=== PATIENT | female | born 1955 | race Caucasian/White ===

== ENCOUNTER 2017-01-18 08:47 | Emergency (ER) | payer BC ==
[2017-01-18 08:56] VITALS: BP 145/80
--- NOTE | 2017-01-18 09:17 | UC ---
Respiratory Complaint HPI - HPI Summary HPI Summary: 61 yo female with cough x 1 week cough is brought on by deep breath or talking no fever or chills fatigue anorexia no n/v/d no chest pain states her normal HR is in the nineties (on beta blosker) - History of Current Complaint Chief Complaint: UCRespiratory Stated Complaint: COUGH,TIGHT CHEST,NO APPETITE Time Seen by Provider: 01/18/17 09:00 Hx Obtained From: Patient Onset/Duration: Gradual Onset, Lasting Days - 7 Timing: Constant Severity Initially: Mild Severity Currently: Mild Pain Intensity: 0 Pain Scale Used: 0-10 Numeric Character: Cough: Nonproductive Aggravating Factors: Deep Breaths Alleviating Factors: Nothing Associated Signs And Symptoms: Positive: Negative - Allergies/Home Medications Allergies/Adverse Reactions: Allergies Allergy/AdvReac Type Severity Reaction Status Date / Time Codeine Allergy Vomiting Verified 01/18/17 08:56 Erythromycin AdvReac GI Upset Verified 01/18/17 08:56 Moxifloxacin [From Avelox] AdvReac GI Upset Verified 01/18/17 08:56 Sulfa Antibiotics AdvReac GI Upset Verified 01/18/17 08:56 Tetracycline AdvReac GI Upset Verified 01/18/17 08:56 Home Medications: Home Medications Atenolol TAB* [Tenormin TAB* 50 MG] 50 mg PO DAILY 01/18/17 [History Confirmed 01/18/17] Atorvastatin* [Lipitor*] 40 mg PO DAILY 01/18/17 [History Confirmed 01/18/17] Metoprolol Tartrate TAB* [Lopressor TAB*] 12.5 mg PO DAILY 01/18/17 [History Confirmed 01/18/17] PMH/Surg Hx/FS Hx/Imm Hx Cardiovascular History Of: Reports: Cardiac Disorders - OK, Hypertension Respiratory History Of: Reports: COPD, Bronchitis - Surgical History Surgical History: Yes Surgery Procedure, Year, and Place: STENT PLACEMENT - Family History Known Family History: Positive: Cardiac Disease, Hypertension, Other - dyslipedmia, no hx PE - Social History Alcohol Use: None Substance Use Type: None Smoking Status (MU): Current Every Day Smoker Type: Cigarettes Amount Used/How Often: 1 PPD Length of Time of Smoking/Using Tobacco: 30 YRS Have You Smoked in the Last Year: Yes Review of Systems Constitutional: Fatigue Skin: Negative Eyes: Negative ENT: Negative Respiratory: Negative, Cough Cardiovascular: Negative Gastrointestinal: Negative Genitourinary: Negative Motor: Negative Neurovascular: Negative Musculoskeletal: Negative Neurological: Negative Psychological: Negative All Other Systems Reviewed And Are Negative: Yes Physical Exam Triage Information Reviewed: Yes Appearance: Well-Appearing, No Pain Distress, Well-Nourished Vital Signs: Initial Vital Signs Temp 98.1 F 01/18/17 08:51 Pulse 88 01/18/17 08:51 Resp 15 01/18/17 08:51 BP 145/80 01/18/17 08:51 Pulse Ox 100 01/18/17 08:51 Vital Signs Reviewed: Yes Eyes: Positive: Conjunctiva Clear ENT: Positive: Hearing grossly normal. Negative: Nasal congestion, Nasal drainage, Trismus, Muffled/hoarse voice Neck: Positive: Supple, Nontender, No Lymphadenopathy Respiratory: Positive: Lungs clear, Normal breath sounds, No respiratory distress, No accessory muscle use, Wheezing - iwth forced expiration only Cardiovascular: Positive: RRR, No Murmur Musculoskeletal: Positive: ROM Intact, No Edema Neurological Exam: Normal Neurological: Positive: Alert Psychological Exam: Normal Skin Exam: Normal UC Diagnostic Evaluation - Laboratory O2 Sat by Pulse Oximetry: 100 - normal/not hypoxic - Radiology Xray Interpretation: No Acute Changes - stigmata of COPD Radiology Interpretation Completed By: Radiologist - EKG Cardiac Rate: NL, Tachycardia - rate 100 Cardiac Rhythm: Sinus: Normal Ectopy: None ST Segment: Normal Respiratory Course/Dx - Course Course Of Treatment: advised pt of XR suggestive of COPD. she will f/u with her MD - Differential Dx/Diagnosis Provider Diagnoses: acute bronchitis Discharge - Discharge Plan Condition: Stable Disposition: HOME Prescriptions: Amoxicillin (*) [Amoxicillin 875 MG (*)] 875 mg PO BID #20 tab Patient Education Materials: Acute Bronchitis (ED) Referrals: Patrica Saunders MD [Primary Care Provider] - If Needed Additional Instructions: recheck for new or worsening symptoms you can take mucinex or robitussin (plain) recheck in 3-4 days if not better
--- NOTE | 2017-01-18 10:00 | RAD ---
INDICATION: Cough, chest tightness. History of COPD and coronary artery disease with previous myocardial infarction. COMPARISON: None. TECHNIQUE: Dual energy PA and routine lateral views of the chest were obtained. REPORT: Elevated lung volumes with partial flattening of the hemidiaphragms. Mild prominence of the interstitial markings. No alveolar consolidation, focal pulmonary lesion, pleural effusion, pneumothorax. The heart, pulmonary vasculature, and mediastinal contours are unremarkable. Probable coronary stent visualized at the LEFT heart margin. IMPRESSION: Stigmata of chronic obstructive pulmonary disease. No acute cardiopulmonary process evident.
== END 2017-01-18 10:21 | disposition home or self-care (01) ==
LOC: UCCORT 08:47
DX: J44.0 Chronic obstructive pulmonary disease with (acute) lower respiratory infection (principal); J20.9 Acute bronchitis, unspecified; I25.2 Old myocardial infarction; I10 Essential (primary) hypertension; R53.83 Other fatigue; F17.210 Nicotine dependence, cigarettes, uncomplicated; Z88.5 Allergy status to narcotic agent; Z88.2 Allergy status to sulfonamides; Z88.8 Allergy status to other drugs, medicaments and biological substances
CPT/HCPCS: 71020; 93005; 99212; G0463

== ENCOUNTER 2018-06-12 16:09 | Emergency (ER) | payer BC ==
--- OUTSIDE RECORDS SUMMARY | 2018-06-12 16:19 | XMS REPORT ---
:1955 External Reference #:[id number] Author Organization [facility] Address [address] [place] [address] Phone [phone] Care Team Providers Name Role Phone Patrica Saunders MD Care Team Information Executive Secretary Social Welfare Unavailable Patrica Saunders MD Primary Care Physician Unavailable Payers Type Date Identification Numbers Payment Provider Subscriber Commercial Effective: Policy Number: Shaun Rush 2014 [id number] PayID: [id number] [address] [address] [place] [address] Medigap Part B Expires: 2009 Policy Number: [facility] Erika Rush [id number] PayID: [id number] [address] [place] [address] Medigap Part B Effective: 2014 Policy Number: Shaun Rush [id number] Expires: 2014 PayID: [id number] [address] [address] [place] [address] Problems Date Description Provider Status Onset: 12/01/2011 History and physical examination, follow-up Patrick Rivas MD Active Note: s/p appendectomy, recovered Onset: 07/21/2014 Coronary arteriosclerosis Maria Esther Kelly, ANP Active Onset: 07/21/2014 Benign essential hypertension Maria Esther Kelly, ANP Active Onset: 07/21/2014 Pure hypercholesterolemia Maria Esther Kelly, ANP Active Onset: 07/21/2014 Acute myocardial infarction Maria Esther Kelly, ANP Active Onset: 07/21/2014 Dyspnea Maria Esther Kelly, ANP Active Onset: 07/21/2014 Tobacco user Maria Esther Kelly ANP Active Onset: 01/01/2015 Tachycardia Maria Esther Kelly ANP Active Onset: 01/01/2015 Disorder of pericardium Maria Esther Kelly ANP Active Onset: 10/24/2015 Sleep disorder Maria Esther Kelly ANP Active Onset: 10/24/2015 Chest pain Maria Esther Kelly ANP Active Family History Date Family Member(s) Problem(s) Comments Father Heart Disease htn 82 Mother due to Emphysema () Onset: (age 51 Years) Mother Myocardial Infarction Social History Type Date Description Comments Lives With Diet No Restrictions Occupation Currently Working Occupation Sales Cigarette Use Pack Years - 30 Cigarette Use currently smokes 1/2 Pack Daily ETOH Use Denies alcohol use Smoking Patient is a current smoker, smokes every day Daily Caffeine Consumes on average 4 cups of regular coffee per day Allergies, Adverse Reactions, Alerts Date Description Reaction Status Severity Comments 11/07/2009 Codeine vomit/pass-out active Erythromycin active Avelox active Tetracycline active Medications Medication Date Status Form Strength Qnty SIG Indications Ordering Provider Amlodipine 09/22/ Active Tablets 2.5mg 90tabs 1 by Briseida Bhatt 2017 mouth Klarissa every , MSN, EXPEDITION SUPERVISOR Metoprolol 02/10/ Active Tablets ER 25mg 90tabs 1/2 tab R00.0 Davidenko Succinate ER 2016 24HR by Be proctor twice M., M.DNico, daily FACC Atorvastatin 10/08/ Active Tablets 40mg 30tabs 1 by E78.0 Davidenko Calcium 2015 mouth , Be every M., M.D., day FACC Aspirin 81 05/24/ Active Tablets DR 81mg 1 po qd Nova, 2013 Klarissa Duarte , MSN, EXPEDITION SUPERVISOR Clonazepam / Active 0.5mg 1-2 tabs [place] 0000 po bid Patrica doan prn MD Amitriptyline HCL / Active Tablets 25mg 1 po qd Unknown 0000 Zolpidem Tartrate / Active Tablets 10mg 30tabs 1 po qd Unknown 0000 Vitamin B Complex / Active Tablets 1 by Unknown 0000 mouth every day Vitamin D / Active Capsules 2000Unit 1 by Unknown 0000 mouth every day Vitamin C / Active Capsules 500mg 1 qd Unknown 0000 Probiotic / Active Capsules 1 qd Unknown 0000 Tramadol / Active Tablets 37.5-325mg 1-2 tabs Unknown Hydrochloride/[place] 0000 by mouth taminophen every 6 hours for back pain as needed ::: Atenolol 08/13/ Hx Tablets 50mg 30tabs 1 by R00.0 Flo 2015 - mouth MD Wayne 09/09/ 2015 day Metoprolol 07/11/ Hx Tablets ER 25mg 90tabs 1 by R00.0 Flo Succinate ER 2015 - 24HR mouth MD Wayne 02/10/ 2016 day Crestor 09/10/ Hx Tablets 20mg 90tabs 1 by E78.0 Flo 2014 - mouth MD Wayne 10/08/ 2015 day Metoprolol 07/21/ Hx Tablets ER 25mg 90tabs 1/2 by 414.01 Lety Succinate ER 2013 - 24HR mouth Jim Andino, 03/09/ every , PhD 2014 day Metoprolol 05/24/ Hx Tablets 25mg 90tabs 1/2 by 414.01 Lety Tartrate 2013 - mouth Jim Andino, 07/21/ twice a MD, PhD 2013 day Protonix 03/21/ Hx Tablets DR 40mg 90tabs 1 by Lety 2013 mouth Jim Andino, every , PhD day Tramadol-Acetamin / Hx 37.5-325mg Cunningha ophen 0000 m, MD Patrica Hydrocortisone / Hx 0.2% [place] Valerate 0000 m, MD Patrica Clonazepam / Hx 0.5mg [place] 0000 - m, Patrica 11/07/ 2009 Hydroxyzine HCL / Hx 25mg [place] 0000 m, MD Patrica Astelin / Hx 137mcg/Spr [place] 0000 ay m, MD Patrica Pravastatin / Hx 10mg [place]ha Sodium 0000 - m, Patrica 11/07/ 2009 Cyclobenzaprine / Hx 10mg [place]ha HCL 0000 - m, Patrica 11/07/ 2009 Tramadol-Acetamin / Hx 37.5-325mg [place]ha ophen 0000 m, Patrica, MD Naproxen / Hx 375mg Unknown 0000 - 2009 Plavix / Hx Tablets 75mg 90tabs 1 by Bhatt, 0000 mouth Klarissa every day , MSN, EXPEDITION SUPERVISOR Aspirin Ec / Hx Tablets DR 325mg 90tabs 1 po qd Unknown 0000 - 2013 Atorvastatin / Hx Tablets 40 30tabs 1 po qd E78.0 Unknown Calcium 0000 - 2014 Metoprolol / Hx Tablets 25mg 180tab 1 po bid Unknown Tartrate 0000 - s 2013 Omeprazole / Hx Capsules 20mg 30caps 1 po qd Unknown 0000 - DR 2013 Protonix / Hx Tablets DR 20mg one Rossi, 0000 daily as MD Wayne needed [employer] [place]-3 / Hx Capsules 500mg 1 by Unknown 0000 mouth every day Atrovent HFA / Hx Aerosol 17mcg/Act inhale 2 Unknown 0000 puffs four times a day Vital Signs Date Vital Result Comment 05/27/2018 BP Systolic Sitting Left Arm 142 mmHg BP Diastolic Sitting Left Arm 80 mmHg Heart Rate 90 /min Respiratory Rate 16 /min Height 60 inches 5'0" Weight 140.00 lb BMI (Body Mass Index) 27.3 kg/m2 BSA (Body Surface Area) 1.60 m2 Sargent body weight in kilograms 45 11/16/2017 BP Systolic Sitting Left Arm 132 mmHg BP Diastolic Sitting Left Arm 80 mmHg Heart Rate 89 /min Respiratory Rate 16 /min Height 60 inches 5'0" Weight 145.00 lb BMI (Body Mass Index) 28.3 kg/m2 BSA (Body Surface Area) 1.63 m2 Sargent body weight in kilograms 45 09/22/2017 BP Systolic Sitting Left Arm 144 mmHg BP Diastolic Sitting Left Arm 84 mmHg Heart Rate 92 /min Respiratory Rate 14 /min Weight 142.00 lb 08/19/2017 BP Systolic Sitting Left Arm 146 mmHg BP Diastolic Sitting Left Arm 86 mmHg Heart Rate 96 /min Respiratory Rate 14 /min Weight 141.00 lb 02/10/2017 BP Systolic Sitting Left Arm 142 mmHg BP Diastolic Sitting Left Arm 82 mmHg Heart Rate 84 /min Respiratory Rate 16 /min Height 64 inches 5'4" Weight 139.00 lb BMI (Body Mass Index) 23.9 kg/m2 BSA (Body Surface Area) 1.68 m2 Sargent body weight in kilograms 54 08/13/2016 BP Systolic Sitting Left Arm 129 mmHg BP Diastolic Sitting Left Arm 80 mmHg Heart Rate 93 /min Respiratory Rate 16 /min Height 64 inches 5'4" Weight 136.00 lb BMI (Body Mass Index) 23.3 kg/m2 BSA (Body Surface Area) 1.66 m2 07/14/2016 BP Systolic Sitting Left Arm 136 mmHg BP Diastolic Sitting Left Arm 70 mmHg Heart Rate 76 /min Respiratory Rate 18 /min Height 64 inches 5'4" Weight 133.00 lb BMI (Body Mass Index) 22.8 kg/m2 BSA (Body Surface Area) 1.64 m2 04/29/2016 BP Systolic Sitting Left Arm 150 mmHg BP Diastolic Sitting Left Arm 80 mmHg Heart Rate 84 /min Height 64 inches 5'4" Weight 134.00 lb BMI (Body Mass Index) 23.0 kg/m2 BSA (Body Surface Area) 1.65 m2 Sargent body weight in kilograms 54 10/24/2015 BP Systolic Sitting Right Arm 120 mmHg BP Diastolic Sitting Right Arm 74 mmHg Heart Rate 100 /min Respiratory Rate 16 /min Height 64 inches 5'4" Weight 137.00 lb BMI (Body Mass Index) 23.5 kg/m2 BSA (Body Surface Area) 1.67 m2 09/10/2015 BP Systolic Sitting Left Arm 136 mmHg BP Diastolic Sitting Left Arm 80 mmHg Heart Rate 102 /min Respiratory Rate 16 /min Height 64 inches 5'4" Weight 138.00 lb BMI (Body Mass Index) 23.7 kg/m2 BSA (Body Surface Area) 1.67 m2 03/09/2015 BP Systolic Sitting Left Arm 120 mmHg BP Diastolic Sitting Left Arm 70 mmHg Heart Rate 68 /min Respiratory Rate 16 /min Height 64 inches 5'4" Weight 134.00 lb BMI (Body Mass Index) 23.0 kg/m2 BSA (Body Surface Area) 1.65 m2 01/01/2015 BP Systolic Sitting Right Arm 134 mmHg BP Diastolic Sitting Right Arm 80 mmHg Heart Rate 118 /min Respiratory Rate 16 /min Height 64 inches 5'4" Weight 136.00 lb BMI (Body Mass Index) 23.3 kg/m2 BSA (Body Surface Area) 1.66 m2 07/21/2014 BP Systolic Sitting Right Arm 92 mmHg BP Diastolic Sitting Right Arm 72 mmHg Heart Rate 96 /min Height 64 inches 5'4" Weight 124.00 lb BMI (Body Mass Index) 21.3 kg/m2 BSA (Body Surface Area) 1.60 m2 01/16/2014 BP Systolic Sitting Right Arm 134 mmHg BP Diastolic Sitting Right Arm 82 mmHg Heart Rate 81 /min Respiratory Rate 14 /min Height 64 inches 5'4" Weight 135.00 lb BMI (Body Mass Index) 23.2 kg/m2 BSA (Body Surface Area) 1.66 m2 12/01/2011 BP Systolic Sitting Left Arm 137 mmHg BP Diastolic Sitting Left Arm 85 mmHg Heart Rate 118 /min Respiratory Rate 18 /min Height 64 inches 5'4" Weight 133.00 lb BMI (Body Mass Index) 22.8 kg/m2 11/07/2009 Body Temperature 98.8 F Heart Rate 96 /min Respiratory Rate 18 /min Height 64 inches 5'4" Weight 127.00 lb BMI (Body Mass Index) 21.8 kg/m2 Results Test Date Test Result H/L Range Note Laboratory test finding 12/18/2017 CPK 45 U/L 12-199 CBC With Auto Diff 12/18/2017 Abs Basophils 0.1 K/uL 0.0-0.3 Abs Eosinophils 0.1 K/uL 0.0-0.5 Abs Lymphocytes 2.5 K/uL 0.8-5.5 Abs Monocytes 0.6 K/uL 0.1-1.0 Abs Neutrophils 7.3 K/uL 2.1-8.0 Basophil 0.5 % 0.0-4.0 Eosinophil 0.9 % 0.0-5.0 Hematocrit 41.9 % 36.0-47.0 Hemoglobin 14.2 gm/dL 12.0-16.0 Lymphocyte 23.5 % 16.0-52.0 MCH 31.5 pg 27.0-32.0 MCHC 33.8 g/dL 32.0-36.0 MCV 93.0 fL 80.0-97.0 MPV 10.4 FL 7.1-10.7 Monocyte 5.4 % 2.0-10.0 Neutrophil 69.7 % 35.0-75.0 PLT Count 250 K/ul 140-400 RBC 4.51 M/uL 4.00-5.40 RDW 13.3 % 11.5-14.5 WBC 10.5 K/uL 4.1-11.0 Comprehensive Met Panel-FCMG 12/18/2017 A/G Ratio 1.9 Ratio 1.0-2.2 Sara Egfr >60 >60 1 Albumin 4.2 g/dL 3.6-4.9 Alkaline Phosphatase 87 U/L 24-140 Alt 13 U/L 3-42 Anion Gap 7 mmol/L 5-15 2 Ast 17 U/L 8-42 BUN 10 mg/dL 6-26 Calcium 10.1 mg/dL 8.5-10.2 Carbon Dioxide 30 mmol/L 24-34 Chloride# 104 mmol/L 97-110 3 Creatinine 1.0 mg/dL 0.5-1.4 Globulin 2.2 g/dL 2.0-3.5 Glucose 102 mg/dL 70-105 Non Sara Egfr 55 1 Low >60 4 Potassium 4.3 mmol/L 3.5-5.2 Sodium 141 mmol/L 135-146 5 Total Bilirubin 0.4 mg/dL 0.1-1.3 Total Protein 6.4 g/dL 6.0-8.0 Lipid 12/18/2017 Chol/ HDL Ratio 2.8 ratio Low 3.7-5.6 Cholesterol 155 mg/dL 50-199 HDL 55 mg/dL 35-85 6 LDL (Calc) 78 mg/dL 20-99 7 Triglycerides 109 mg/dL 30-200 VLDL 22 mg/dL 2-29 Order 08/28/2016 Event Monitor <pending> Laboratory test finding 01/05/2015 Free T4 1.01 ng/dL 0.76-1.46 Thyroid Stim Hormone 1.81 uIU/mL 0.36-3.74 Laboratory test finding 11/22/2011 Appendix Inflammation See Note 8 1 Concerning GFR Guidelines for Americans: Normal function or mild renal disease, if clinically at risk: >/=60 mL/min Moderately decreased: 30-59 Severely decreased: 15-29 Renal failure: <15 2 Updated Reference Range 3 Updated reference range on new analyzer 4 Concerning GFR Guidelines: Normal function or mild renal disease, if clinically at risk: >/=60 mL/min Moderately decreased: 30-59 Severely decreased: 15-29 Renal failure: <15 Glomerular Filtration Rate (GFR) is estimated based on the MDRD equation, which assumes a steady state for creatinine as recommended by the National Kidney Disease Education Program in conjunction with the National Institutes of Health and the National Kidney Foundation. Clinical conditions in which it may be necessary to measure GFR by using clearance methods include extremes of age and body size, severe malnutrition or obesity, diseases of skeletal muscle, paraplegia or quadriplegia, vegetarian diet, rapidly changing kidney function, and calculation of the dose of potentially toxic drugs that are excreted by the kidneys. 5 Updated reference range on new analyzer 6 Per NCEP ATP III Guidelines: Results lower than 40 mg/dL are suggestive of increased risk for coronary artery disease. Results > or=to 60 mg/dL are considered a negative risk factor. 7 Per NCEP ATP III Guidelines: Normal Population <130 Patients with medical conditions: CHD/DM Optimal: <100 Borderline high: 130-159 High: 160-189 Very high: >189 8 OPERATION/PROCEDURE Appendectomy DIAGNOSIS: "APPENDIX, APPENDECTOMY": ACUTE APPENDICITIS, WITH SEROSITIS. FLS/clf GROSS Received in formalin labeled, "APPENDIX" is a 5.5 cm. vermiform appendix with a diameter up to 1.2 cm. The surface of the appendix is focally congested. The mesoappendix measures up to 1.1. cm. in width and 0.5 cm. in thickness and is attached to the entire length of the appendix. Upon further sectioning there is a 2.1 x 0.8 x 0.8 cm. fecal material located approximately 1.5 cm. from the proximal end and occludes the lumen. No tumor is identified. The entire appendix is submitted in three blocks. T/ clf MICROSCOPIC Sections reveal sheets of luminal neutrophils eroding into the wall of the appendix, without evidence of perforation. Lymphoid follicles are hypertrophied. The serosal vessels are congested and have a fibrinopurulent exudate. PRE OPERATIVE DIAGNOSIS Appendicitis REVIEW CODE CODE: I RAYMUNDO Hicks MD 11/25/11 1221 Procedures Date CPT Code Description Status 05/27/2018 72317 EKG-Tracing And Report Completed 10/26/2017 23920 Stress Test Interpre And Report Only Completed 10/26/2017 61589 Stress Test Physician Super Only Completed 10/26/2017 73383 Myocardial Imaging Tomographic Multiple Study AT Rest Completed Or Stress 09/01/2017 38501 Echocardiogram Complete Completed 08/28/2016 43034 Event Monitor Inter/Review Only Completed 10/19/2015 92001 ECHO Transthoracic Inc Performance Continuous Completed Electrocardio 01/05/2015 94425 Holter Monitor 24HR Inter/Report Completed 01/05/2015 08648 Echocardiogram Complete Completed 01/01/2015 25260 EKG-Tracing And Report Completed 08/07/2014 44433 Echocardiogram Complete Completed 08/07/2014 76639 Echocardiogram Complete Completed 01/16/2014 37318 EKG-Tracing And Report Completed 11/22/2011 54529 Appendectomy Completed 11/22/2011 16440 Anesthesia, Lower Abdomen Surgery Not Otherwise Spec Completed 12/14/2007 95784 Stress Test Interpre And Report Only Completed 12/14/2007 10553 Stress Test Physician Super Only Completed Encounters Type Date Location Provider CPT E/M Dx Office Visit 05/27/2018 10:20a Cardiology Office Klarissa Bhatt 39678 I25.119 FRANCINE Duarte, EXPEDITION SUPERVISOR I10 E78.2 Office Visit 11/16/2017 1:40p [place] [address] I25.119 R06.02 R07.2 R00.0 I10 Office Visit 09/22/2017 2:30p [place] [address] I25.119 R06.02 R00.0 F17.210 I10 Office Visit 08/19/2017 1:20p Cardiology Office Klarissa Bhatt 37636 R06.02 LELO ESCAMILLA I25.10 R00.0 F17.210 E78.2 Office Visit 02/10/2017 8:00a [place] [address] I25.10 R00.0 F17.210 E78.2 I10 Office Visit 08/13/2016 8:30a Cardiology Office Michelle Kellyh A., ANP 27695 R00.0 I25.10 F17.210 E78.2 R06.02 Office Visit 07/14/2016 11:30a Cardiology Office Robin Maria Esther A., ANP 62853 R00.0 I25.10 F17.210 E78.2 R06.02 R07.89 Office Visit 04/29/2016 8:40a Cardiology Office Robin Maria Esther A., ANP 14655 I25.10 E78.0 R06.02 F17.210 R07.89 Office Visit 10/24/2015 9:00a Cardiology Office Michelle Kellyh A., ANP 19147 I25.10 E78.0 R06.02 F17.210 F51.8 R07.89 Office Visit 09/10/2015 8:30a Cardiology Office Michelle Kellyh A., ANP 92755 I25.10 E78.0 R06.02 F51.8 F17.210 Office Visit 03/09/2015 8:30a Cardiology Office Michelle Kellyh A., ANP 83531 785.0 423.9 786.05 414.01 272.0 307.47 305.1 Office Visit 01/01/2015 9:10a Cardiology Office Robin Maria Esther A., ANP 54621 786.05 414.01 785.0 423.9 272.0 305.1 Office Visit 07/21/2014 8:30a Cardiology Office Robin Maria Esther A., ANP 73080 414.01 401.1 272.0 410.90 786.05 305.1 Office Visit 01/16/2014 1:00p Cardiology [place] [address] 414.01 401.1 272.0 Office Visit 12/21/2013 8:51a Cardiology [place] [address] 410.90 Office Visit 11/22/2011 11:05a [place] [address] 540.9 Office Visit 11/07/2009 10:45a [place] [address] 789.00 416.9 Plan of Care Future Appointment(s):11/24/2018 9:15 am - Wayne Rossi MD at Cardiology [facility]2405/27/2018 - Klarissa Bhatt, MSN, FNPI25.119 Athscl heart disease of [place] cor art w unsp ang pctrsComments:No changes. Continue with medical management.I10 Essential (primary) hypertensionComments:No changes.E78.2 Mixed hyperlipidemiaComments:No changes.AllFollow up:Follow up visit in six months.
[2018-06-12 17:08] VITALS: BP 152/84
--- NOTE | 2018-06-12 17:36 | UC ---
Complaint Female HPI - HPI Summary HPI Summary: C/O 1 day history of UTI symptoms. Dysuria/ frequency/ urgency. ? some sweats and chills yesterday. - History Of Current Complaint Chief Complaint: UCGU Stated Complaint: URINARY Time Seen by Provider: 06/12/18 17:22 Hx Obtained From: Patient Onset/Duration: Sudden Onset, Lasting Days - 1, Still Present Timing: Constant Severity Initially: Mild Severity Currently: Mild Pain Intensity: 2 Character: Burning Aggravating Factor(s): Urination Alleviating Factor(s): Nothing Associated Signs And Symptoms: Negative: Fever, Back Pain, Vaginal Bleeding/ Discharge, Vaginal Discharge, Nausea, Vomiting(# Of Episodes =) - Allergies/Home Medications Allergies/Adverse Reactions: Allergies Allergy/AdvReac Type Severity Reaction Status Date / Time MS Codeine [Codeine] Allergy Vomiting Verified 01/18/17 08:56 MS Erythromycin AdvReac GI Upset Verified 01/18/17 08:56 [Erythromycin] MS Moxifloxacin [From Avelox] AdvReac GI Upset Verified 01/18/17 08:56 MS Sulfa Antibiotics AdvReac GI Upset Verified 01/18/17 08:56 [Sulfa Antibiotics] MS Tetracycline AdvReac GI Upset Verified 01/18/17 08:56 [Tetracycline] Home Medications: Home Medications amLODIPine TAB* [Norvasc 5 mg TAB*] 2.5 mg PO BEDTIME 06/12/18 [History Confirmed 06/12/18] PMH/Surg Hx/FS Hx/Imm Hx Cardiovascular History: Cardiac Disease - Surgical History Surgical History: Yes Surgery Procedure, Year, and Place: STENT PLACEMENT. hysterectomy. 2 tubal pregnancies. appendectomy. hernia repair. carpal tunnel - Family History Known Family History: Positive: Cardiac Disease, Hypertension, Other - dyslipedmia, no hx PE Negative: Diabetes - Social History Occupation: Employed Full-time Lives: With Family Alcohol Use: None Substance Use Type: None Smoking Status (MU): Heavy Every Day Tobacco Smoker Type: Cigarettes Amount Used/How Often: 3/4 ppd Length of Time of Smoking/Using Tobacco: 30 YRS Have You Smoked in the Last Year: Yes Cessation Counseling: Patient Advised to Stop Review of Systems Genitourinary: Dysuria, Frequency, Urgency Is Patient Immunocompromised?: No All Other Systems Reviewed And Are Negative: Yes Physical Exam Triage Information Reviewed: Yes Appearance: Well-Appearing, No Pain Distress, Well-Nourished Vital Signs: Initial Vital Signs Temp 98.2 F 06/12/18 17:02 Pulse 97 06/12/18 17:02 Resp 16 06/12/18 17:02 BP 152/84 06/12/18 17:02 Pulse Ox 100 06/12/18 17:02 Vital Signs Reviewed: Yes Neck exam: Normal Respiratory Exam: Normal Cardiovascular Exam: Normal Abdomen Description: Negative: Nontender - suprapubic tenderness, CVA Tenderness (R), CVA Tenderness (L) Bowel Sounds: Positive: Present Musculoskeletal Exam: Normal Neurological Exam: Normal Psychological Exam: Normal Skin Exam: Normal Complaint Female Dx - Differential Dx/Diagnosis Differential Diagnosis/HQI/PQRI: Appendicitis, Urinary Tract Infection Provider Diagnoses: Acute cystitis Discharge - Sign-Out/Discharge Documenting (check all that apply): Patient Departure All imaging exams completed and their final reports reviewed: No Studies - Discharge Plan Condition: Stable Disposition: HOME Prescriptions: Nitrofurantoin Monohyd/M-Cryst [Macrobid 100 mg Capsule] 100 mg PO BID #14 cap Phenazopyridine 200 mg (NF) [Pyridium 200 MG tab *] 200 mg PO TID PRN #6 tab PRN Reason: UTI symptoms Patient Education Materials: Urinary Tract Infection in Women (ED), Phenazopyridine (By mouth), Nitrofurantoin Combination (By mouth) Referrals: Patrica Saunders MD [Primary Care Provider] - Additional Instructions: Smoking Cessation Tricks. 1. Cut down by 1 cigarette per day every 2-3 days. Write the number of smokes for that day on the calendar. 2. Identify triggers to smoking: after meals, on the phone, in the car, with coffee, on breaks at work, etc. 3. Formulate a plan with a behavior to replace the smoking. Fireballs in the car , doodle pad on the phone, flavored creamer for the coffee, go for a walk after a meal or on break at work. 4. For stress smokes do deep breathing relaxation. Breath deep in through the nose hold the breath in for a few seconds then breath out slowly through the mouth. - Billing Disposition and Condition Condition: STABLE Disposition: Home
== END 2018-06-12 17:59 | disposition home or self-care (01) ==
LOC: UCCORT 16:09
DX: N30.00 Acute cystitis without hematuria (principal); I51.9 Heart disease, unspecified; F17.210 Nicotine dependence, cigarettes, uncomplicated; Z98.61 Coronary angioplasty status; Z88.1 Allergy status to other antibiotic agents; Z88.5 Allergy status to narcotic agent
CPT/HCPCS: 81003; 87077; 87086; 87186; 99212; G0463

== ENCOUNTER 2018-10-20 16:58 | Emergency (ER) | payer BC ==
[2018-10-20 17:38] VITALS: BP 170/86
--- NOTE | 2018-10-20 17:51 | UC ---
Respiratory Complaint HPI - HPI Summary HPI Summary: 63-year-old woman comes in with a chief complaint of bronchitis symptoms for 4 weeks. Patient is a smoker. She's had chest congestion and feeling ill for 4 weeks. Overall she's just not getting any better. - History of Current Complaint Chief Complaint: UCGeneralIllness Stated Complaint: COUGH,CHEST PAIN WHEN COUGHING Time Seen by Provider: 10/20/18 17:31 Pain Intensity: 0 - Allergies/Home Medications Allergies/Adverse Reactions: Allergies Allergy/AdvReac Type Severity Reaction Status Date / Time codeine AdvReac Intermediate Vomiting Verified 10/20/18 17:41 erythromycin base AdvReac Intermediate GI Upset Verified 10/20/18 17:41 moxifloxacin [From Avelox] AdvReac Intermediate GI Upset Verified 10/20/18 17:42 Sulfa (Sulfonamide AdvReac Intermediate GI Upset Verified 10/20/18 17:46 Antibiotics) tetracycline AdvReac Intermediate GI Upset Verified 10/20/18 17:47 PMH/Surg Hx/FS Hx/Imm Hx Previously Healthy: Yes Respiratory History: COPD - Surgical History Surgical History: Yes Surgery Procedure, Year, and Place: STENT PLACEMENT. hysterectomy. 2 tubal pregnancies. appendectomy. hernia repair. carpal tunnel - Family History Known Family History: Positive: Cardiac Disease, Hypertension, Other - dyslipedmia, no hx PE Negative: Diabetes - Social History Alcohol Use: None Substance Use Type: None Smoking Status (MU): Heavy Every Day Tobacco Smoker Type: Cigarettes Amount Used/How Often: 3/4 ppd Length of Time of Smoking/Using Tobacco: 30 YRS Have You Smoked in the Last Year: Yes Review of Systems All Other Systems Reviewed And Are Negative: Yes Constitutional: Positive: Negative Skin: Positive: Negative Eyes: Positive: Negative ENT: Positive: Nasal Discharge Respiratory: Positive: Shortness Of Breath, Cough, Other - SOB Cardiovascular: Positive: Chest Pain - SPLINTING WITH COUGH Gastrointestinal: Positive: Negative Motor: Positive: Negative Neurovascular: Positive: Negative Musculoskeletal: Positive: Negative Neurological: Positive: Negative Psychological: Positive: Negative Is Patient Immunocompromised?: No Physical Exam Triage Information Reviewed: Yes Appearance: No Pain Distress, Well-Nourished, Ill-Appearing - MILD Vital Signs: Initial Vital Signs Temp 97.3 F 10/20/18 17:35 Pulse 100 01/30/19 17:35 Resp 18 10/20/18 17:35 BP 170/86 10/20/18 17:35 Pulse Ox 95 10/20/18 17:35 Vital Signs Reviewed: Yes Eye Exam: Normal Eyes: Positive: Conjunctiva Clear ENT: Positive: Pharyngeal erythema, Nasal congestion, Nasal drainage, TMs normal Neck exam: Normal Neck: Positive: Supple Respiratory: Positive: Lungs clear, Normal breath sounds, No respiratory distress Cardiovascular: Positive: RRR Musculoskeletal Exam: Normal Musculoskeletal: Positive: Strength Intact, ROM Intact Neurological Exam: Normal Neurological: Positive: Alert, Muscle Tone Normal Psychological Exam: Normal Psychological: Positive: Age Appropriate Behavior Skin Exam: Normal UC Diagnostic Evaluation - Laboratory O2 Sat by Pulse Oximetry: 95 Respiratory Course/Dx - Differential Dx/Diagnosis Provider Diagnosis: Bronchitis, COPD (chronic obstructive pulmonary disease) Discharge - Sign-Out/Discharge Documenting (check all that apply): Patient Departure All imaging exams completed and their final reports reviewed: No Studies - Discharge Plan Condition: Stable Disposition: HOME Prescriptions: Amoxicillin/Clavulanate TAB* [Augmentin TAB 875*] 875 mg PO BID #20 tab Ipratropium HFA INHALER(NF) [Atrovent Hfa Inhaler(NF)] 2 puff INH QID #1 mdi Patient Education Materials: Acute Bronchitis (ED), COPD (Chronic Obstructive Pulmonary Disease) (ED) Referrals: Patrica Saunders MD [Primary Care Provider] - Additional Instructions: FOLLOW UP WITH YOUR DOCTOR IF NOT COMPLETELY IMPROVED. GET RECHECKED SOONER WITH ANY WORSENING OF YOUR CONDITION OR QUESTIONS OR CONCERNS. - Billing Disposition and Condition Condition: STABLE Disposition: Home
== END 2018-10-20 17:59 | disposition home or self-care (01) ==
LOC: UCCORT 16:58
DX: J44.9 Chronic obstructive pulmonary disease, unspecified (principal); Z95.5 Presence of coronary angioplasty implant and graft; Z88.1 Allergy status to other antibiotic agents; Z88.5 Allergy status to narcotic agent; Z88.2 Allergy status to sulfonamides; F17.210 Nicotine dependence, cigarettes, uncomplicated
CPT/HCPCS: 99212; G0463